=== PATIENT | male | born 1945 | race Caucasian/White ===

== ENCOUNTER 2017-02-16 14:05 | Emergency (ER) | payer MEDICARE ==
[~2017-02-16] VITALS: Ht 177.8 cm; Wt 90.0 kg
[~2017-02-16 14:05] MED LIST: CYCL5TAB PO; NAPR-576 PO
[2017-02-16 14:29] VITALS: BP 133/75; PULSE 70; RESP 16; TEMP 98; O2SAT 100
[2017-02-16] MEDS ORDERED: KETOROLAC TROMETHAMINE 60 MG/2 ML (IM) VIAL IM ONE (14:30)
--- NOTE | 2017-02-16 14:41 | PD ---
HPI Chief Complaint: Musculoskeletal Complaint Time Seen by Provider: 14:38 Travel History International Travel<30 days: No Contact w/Intl Traveler<30days: No Traveled to known affect area: No History of Present Illness HPI This is a 71-year-old male who presents for evaluation of right knee pain. Reports that yesterday he twisted his right knee twice. Since then he has had generalized aching pain in his right knee which is worse with flexion and extension. Pain is worse in the posterior and inferior aspect of the right knee. He does report that he has chronic bilateral knee pain secondary to osteoarthritis. He receives steroid injections intra-articularly twice here by his orthopedist Dr. Patrick. He is not currently taking any medication for pain at home. He has no other complaints at this time. [facility] Past Medical History Diminished Hearing: No Respiratory: Yes (copd) Influenza Vaccination: No ?: Not Past Surgical History Tonsillectomy: Yes (AND ADENOIDS) Other Surgery: Yes (NASAL FX REPAIR, LEFT ARM-STAPH INFECTION) Social History Alcohol Use: Yes ("RARELY") Tobacco Use: Yes (1 PPD) Substance Use: No Allergies-Medications (Allergen,Severity, Reaction): Coded Allergies: No Known Allergies (Verified , 09/27/15) Reported Meds & Prescriptions Reported Meds & Active Scripts Active Naproxen 500 Mg Tab 500 Mg PO BID 14 Days Review of Systems Musculoskeletal: Positive: Pain, No: Limited ROM Skin: Positive Other (denies open wounds) Physical Exam Narrative GENERAL: Well-nourished male in no acute distress SKIN: Warm and dry. HEAD: Atraumatic. Normocephalic. EYES: Pupils equal and round. No scleral icterus. No injection or drainage. ENT: No nasal bleeding or discharge. Mucous membranes pink and moist. NECK: Trachea midline. No JVD. CARDIOVASCULAR: Regular rate and rhythm. No murmur appreciated. RESPIRATORY: No accessory muscle use. Clear to auscultation. Breath sounds equal bilaterally. MUSCULOSKELETAL: No obvious deformities. There is some tenderness to palpation of the inferior aspect of the right knee. Bilateral knee crepitus is present. The patient maintains full flexion and extension of both knees. There is no obvious laxity on stress examination. Trace tibial edema bilaterally. NEUROLOGICAL: Awake and alert. No obvious cranial nerve deficits. Motor grossly within normal limits. Normal speech. Data Data Last Documented VS Vital Signs Date Time Temp Pulse Resp B/P (MAP) Pulse Ox O2 Delivery O2 Flow Rate FiO2 02/16/17 14:29 98.0 70 16 133/75 (94) 100 Orders Orders Ketorolac Inj (Toradol Inj) (02/16/17 14:30) Knee, Complete (4vws) (02/16/17 ) Ed Discharge Order (02/16/17 15:07) MDM Medical Decision Making Medical Screen Exam Complete: Yes Emergency Medical Condition: Yes Medical Record Reviewed: Yes Differential Diagnosis Osteoarthritis, ligamentous disruption, meniscal disruption, tibial plateau fracture Narrative Course X-ray imaging will be obtained to rule out tibial plateau/proximal fibular fracture. Toradol administered. X-ray imaging reveals degenerative changes with no acute abnormalities. The plan is to treat the patient conservatively with rest, NSAIDs, ice, and he is encouraged to follow-up with his primary care physician in 2 weeks for recheck. If symptoms persist outpatient MRI imaging may be warranted. He is stable for discharge. Diagnosis Primary Impression: Right knee sprain Additional Impression: Osteoarthritis of knees, bilateral Additional Instructions: Naproxen with meals. Rest. Apply ice pack several times a day 20 minutes at a time. Compress. Follow-up with primary care physician in 2 weeks for recheck. Return for any emergent medical conditions. Med/Other Pt SpecificInfo: Prescription(s) given Scripts Naproxen (Naproxen) 500 Mg Tab 500 MG PO BID for 14 Days, #28 TAB 0 Refills Prov: Jimy Barnett MD 02/16/17 Disposition: 01 DISCHARGE HOME Condition: Stable Aly Bell Feb 16, 2017 14:41
--- NOTE | 2017-02-16 15:01 | RADRPT ---
EXAM DATE/TIME: 02/16/2017 14:37 [facility] COMPARISON: No previous studies available for comparison. INDICATIONS : Right knee pain after twisting it last night. MEDICAL HISTORY : Arthritis. SURGICAL HISTORY : None. ENCOUNTER: Initial ACUITY: 2 days PAIN SCORE: 9/10 LOCATION: Right knee FINDINGS: Four view examination of the right knee demonstrates no evidence of fracture or dislocation. There is moderate degenerative arthritis at the knee joint. There is narrowing of the medial joint compartmen t. No definite joint effusion. There is narrowing of the patellofemoral joint.. CONCLUSION: Moderate primary degenerative arthritis of the knee joint with narrowing of the medial joint compartm ent. Ahmet Enriquez MD on February 16, 2017 at 14:58 Board Certified Radiologist. This report was verified electronically.
[2017-02-16] MEDS ORDERED: NAPR500T2 PO (15:08)
== END 2017-02-16 15:16 | disposition home or self-care (01) ==
LOC: PHEFT 14:05
DX: S83.91XA Sprain of unspecified site of right knee, initial encounter (principal); M17.0 Bilateral primary osteoarthritis of knee; F17.200 Nicotine dependence, unspecified, uncomplicated; X50.1XXA Overexertion from prolonged static or awkward postures, initial encounter
CPT/HCPCS: 73564; 96372; 99284; J1885